=== PATIENT | female | born 1980 | race Caucasian/White ===

== ENCOUNTER 2022-07-26 18:32 | Emergency (ER) | payer OTHER ==
[~2022-07-26] VITALS: Ht 175.3 cm; Wt 104.5 kg
[2022-07-26 19:23] VITALS: BP 103/64
[2022-07-26] MEDS ORDERED: SULF-261 PO (22:19)
[2022-07-26] MEDS ORDERED: CEPH-558 PO (22:20)
[2022-07-26] MEDS ORDERED: IBUP-2070 PO (22:20)
== END 2022-07-26 22:34 | disposition home or self-care (01) ==
LOC: EMS 18:32
DX: N61.1 Abscess of the breast and nipple (principal); Z79.899 Other long term (current) drug therapy
CPT/HCPCS: 99283